=== PATIENT | male | born 1965 | race Caucasian/White ===

== ENCOUNTER → 2022-01-21 | Outpatient (CLI) | payer OTHER ==
--- NOTE | 2022-01-21 15:39 | CT ---
EXAMINATION TYPE: CT heart w calcium score DATE OF EXAM: 01/21/2022 COMPARISON: None. HISTORY: Screening for cardiovascular disorder. 213.9 CT DLP: 497.6 mGycm Automated exposure control for dose reduction was used. CT CALCIUM SCORING Coronary calcium is a marker for plaque (fatty deposits) in a blood vessel or atherosclerosis (harden ing of the arteries). The presence and amount of calcium detected in a coronary artery by the CT sca n, indicates the presence and amount of atherosclerotic plaque. These calcium deposits appear years before the development of heart disease symptoms such as chest pain and shortness of breath. A calcium score is computed for each of the coronary arteries based upon the volume and density of th e calcium deposits. This can be referred to as your calcified plaque burden. It does not correspond directly to the percentage of narrowing in the artery but does correlate with the severity of the un derlying coronary atherosclerosis. PROCEDURE TECHNIQUE - Prospective Gating was used. Slice thickness: 3mm. Density threshold (HU): 130, Pixel threshold: 3, Algorithm: discrete. RESULTS Region: LM Calcium Score ([place]): 0 Volume (mm3): 0 Mass (g): 0 Region: RCA Calcium Score ([place]): 0 Volume (mm3): 0 Mass (g): 0 Region: LAD Calcium Score ([place]): 3.28 Volume (mm3): 4.92 Mass (g): 1.64 Region: CX Calcium Score ([place]): 3.61 Volume (mm3): 5.41 Mass (g): 1.8 Region: PDA Calcium Score ([place]): 0 Volume (mm3): 0 Mass (g): 0 Total: Calcium Score ([place]): 6.89 Volume (mm3): 10.33 Mass (g): 3.44 Incidental findings: Mild left basilar linear scarring IMPRESSION: Calcium Score: 1-10 Implication: Minimal identifiable plaque. Risk of Coronary Artery Disease: Very unlikely, less than 10%.
== END | disposition home or self-care (01) ==
LOC: RADCTMAIN 13:11
DX: Z13.6 Encounter for screening for cardiovascular disorders (principal); I25.10 Atherosclerotic heart disease of native coronary artery without angina pectoris
CPT/HCPCS: 75571

== ENCOUNTER 2023-03-24 09:05 | Emergency (ER) | payer OTHER ==
[2023-03-24] MEDS ORDERED: ONDANSETRON 4 MG/2 ML VIAL IVP STA ×2 (09:27→12:01)
[2023-03-24] MEDS ORDERED: KETOROLAC 15 MG/ML 1 ML VIAL IVP STA (09:27)
[2023-03-24] MEDS ORDERED: SODIUM CHLORIDE 0.9% 1,000 ML IV STA (09:27)
[2023-03-24] MEDS ORDERED: MORPHINE SULFATE 2 MG/ML SYRINGE IVP STA (09:28)
--- NOTE | 2023-03-24 09:33 | ED ---
Abdominal Pain HPI - General Chief Complaint: Nausea/Vomiting/Diarrhea Stated Complaint: NVD-abd pain Time Seen by Provider: 03/24/23 09:23 Source: patient, RN notes reviewed Mode of arrival: ambulatory Limitations: no limitations - History of Present Illness Initial Comments: This is a 57 year old male who presents to the emergency department for abdomi nal pain, nausea, vomiting, and diarrhea. States that 2 days ago he started to develop nausea and vomiting and has since been unable to keep anything down. Yesterday he then developed diarrhea. He has continued to have the pain in the left side and left lower quadrant. He does have some pain going into the back as well. Denies any fevers. Reports a history of kidney stones but states that this feels different. Denies any history of diverticulitis. Unsure if he has ever been told that he has diverticulosis. He did go to urgent care earlier today and was instructed to come here for further evaluation. After being in the emergency department for a couple of hours, states that he received a phone call from his saying that 2 other people from a friend's thanksgiving dinner 3 days ago have also now started vomiting, and he wonders if he may have gotten sick from this. MD Complaint: abdominal pain - Related Data Previous Rx's Medication Instructions Recorded Ondansetron Odt [Zofran Odt] 4 mg PO Q8HR PRN #20 tab 03/24/23 Allergies Allergy/AdvReac Type Severity Reaction Status Date / Time Penicillins Allergy Rash/Hives Verified 03/24/23 09:16 Review of Systems ROS Statement: Those systems with pertinent positive or pertinent negative responses have been documented in the HPI. ROS Other: All systems not noted in ROS Statement are negative. Past Medical History Past Medical History: No Reported History History of Any Multi-Drug Resistant Organisms: None Reported Past Surgical History: Back Surgery, Orthopedic Surgery Past Psychological History: No Psychological Hx Reported Smoking Status: Vaper Past Alcohol Use History: Daily Past Drug Use History: Marijuana General Exam Limitations: no limitations General appearance: alert, in no apparent distress Head exam: Present: atraumatic, normocephalic, normal inspection Respiratory exam: Present: normal lung sounds bilaterally. Absent: respiratory distress, wheezes, rales, rhonchi, stridor Cardiovascular Exam: Present: regular rate, normal rhythm, normal heart sounds. Absent: systolic murmur, diastolic murmur, rubs, gallop, clicks GI/Abdominal exam: Present: soft, tenderness (LLQ), normal bowel sounds. Absent: distended Neurological exam: Present: alert, oriented X3, CN II-XII intact Psychiatric exam: Present: normal affect, normal mood Skin exam: Present: warm, dry, intact, normal color. Absent: rash Course Vital Signs 03/24/23 03/24/23 03/24/23 09:17 10:52 11:00 Temperature 99 F 98.1 F 98.4 F Pulse Rate 87 85 83 Respiratory 18 18 18 Rate Blood Pressure 147/88 161/99 161/98 O2 Sat by Pulse 97 98 95 Oximetry 03/24/23 13:22 Temperature 98.3 F Pulse Rate 80 Respiratory 18 Rate Blood Pressure 152/73 O2 Sat by Pulse 97 Oximetry Medical Decision Making - Medical Decision Making this is a 57-year-old male who presents to the emergency department for abdominal pain, nausea, and vomiting. Was pt. sent in by a medical professional or institution? @ -Urgent care Did you speak to anyone other than the patient for history? @ -No Did you review nursing and triage notes? @ -Yes, and I agree, it is accurate with regards to the patient's symptoms. Were old charts reviewed? @ -No Differential Diagnosis? @ -Differential Abdominal Pain Men: Appendicitis, cholecystitis, diverticulosis, ischemic bowel, pancreatitis, hepatitis, UTI, gastroenteritis, AAA, incarcerated hernia, bowel obstruction, constipation, inflammatory bowel, hepatitis, peptic ulcer disease, splenic infarction, perforated viscus, testicular torsion, this is not meant to be an all-inclusive list EKG interpreted by me (3pts min.)? @ -Not obtained X-rays interpreted by me (1pt min.)? @ -Not obtained CT interpreted by me (1pt min.)? @ -Computed tomography scan of the abdomen and pelvis obtained. My interpretation identifies no evidence of bowel wall thickening or free air. U/S interpreted by me (1pt. min.)? @ -Not obtained What testing was considered but not performed? (CT, X-rays, U/S, labs)? Why? @ -None What meds were considered but not given? Why? @ -None Did you discuss the management of the patient with other professionals? @ -No Did you reconcile home meds? @ -No Was smoking cessation discussed for >3mins.? @ -No Was critical care preformed (if so, how long)? @ -No Were there social determinants of health that impacted care today? How? (Homelessness, low income, unemployed, alcoholism, drug addiction, transportation, low edu. Level, literacy, decrease access to med. care, assisted, rehab)? @ -No Was there de-escalation of care discussed even if they declined? (Discuss DNR or withdrawal of care, Hospice)? @ -No What co-morbidities impacted this encounter? (DM, HTN, Smoking, COPD, CAD, Cancer, CVA, Hep., AIDS, mental health diagnosis, sleep apnea, morbid obesity)? @ -None Was patient admitted / discharged? @ -Discharged. Lab work obtained and found to be nonactionable. Urinalysis negative for signs of infection. Computed tomography scan of the abdomen and pelvis obtained revealing no acute process. Pain may be related to a muscle strain from repeated nausea and vomiting. Patient's symptoms were well controlled in the emergency department and he was tolerating oral intake afterwards. Given that he was at a friend's Thanksgiving dinner and 2 other people have also started to get sick, it is very possible that he contracted something there whether it be a virus or related to food poisoning. Following medication administration, he did feel significantly improved and stable for discharge home. Prescription for Zofran provided with dosing instructions reviewed. He is advised to slowly advance his diet as tolerated and remain well-hydrated. Also advised close follow-up with his primary care provider. Undiagnosed new problem with uncertain prognosis? @ -None Drug Therapy requiring intensive monitoring for toxicity (Heparin, Nitro, Insulin, Cardizem)? @ -None Were any procedures done? @ -None Diagnosis/symptom? @ -Nausea and vomiting, abdominal pain Acute, or Chronic, or Acute on Chronic? @ -Acute Uncomplicated (without systemic symptoms) or Complicated (systemic symptoms)? @ -Uncomplicated Side effects of treatment? @ -None Exacerbation, Progression, or Severe Exacerbation] @ -Not applicable Poses a threat to life or bodily function? @ -No Return precautions reviewed in depth, the patient is instructed to return to the emergency department with any new, worsening, or concerning symptoms. Patient verbalized understanding. This case was discussed in detail with the attending ED physician, Dr. Smith. Presentation, findings, and treatment plan discussed in detail as well. - Lab Data Result diagrams: 03/24/23 09:31 03/24/23 09:31 Lab Results 03/24/23 03/24/23 03/24/23 Range/Units 09:31 09:31 09:31 WBC 9.0 (3.8-10.6) k/uL RBC 5.21 (4.30-5.90) m/uL Hgb 15.9 (13.0-17.5) gm/dL Hct 45.1 (39.0-53.0) % MCV 86.6 (80.0-100.0) fL MCH 30.5 (25.0-35.0) pg MCHC 35.2 (31.0-37.0) g/dL RDW 13.2 (11.5-15.5) % Plt Count 274 (150-450) k/uL MPV 8.3 Neutrophils % 83 % Lymphocytes % 10 % Monocytes % 4 % Eosinophils % 0 % Basophils % 0 % Neutrophils # 7.5 (1.3-7.7) k/uL Lymphocytes # 0.9 L (1.0-4.8) k/uL Monocytes # 0.4 (0-1.0) k/uL Eosinophils # 0.0 (0-0.7) k/uL Basophils # 0.0 (0-0.2) k/uL Sodium 136 L (137-145) mmol/L Potassium 3.8 (3.5-5.1) mmol/L Chloride 102 (98-107) mmol/L Carbon Dioxide 21 L (22-30) mmol/L Anion Gap 13 mmol/L BUN 10 (9-20) mg/dL Creatinine 0.63 L (0.66-1.25) mg/dL Est GFR (CKD-EPI)AfAm >90 (>60 ml/min/1.73 sqM) Est GFR (CKD-EPI)NonAf >90 (>60 ml/min/1.73 sqM) Glucose 151 H (74-99) mg/dL Plasma Lactic Acid Kirill (0.7-2.0) mmol/L Calcium 10.2 (8.4-10.2) mg/dL Total Bilirubin 1.0 (0.2-1.3) mg/dL AST 81 H (17-59) U/L ALT 117 H (4-49) U/L Alkaline Phosphatase 75 (38-126) U/L Total Protein 7.7 (6.3-8.2) g/dL Albumin 4.4 (3.5-5.0) g/dL Urine Color Yellow Urine Appearance Clear (Clear) Urine pH 6.5 (5.0-8.0) Ur Specific [place] >1.050 H (1.001-1.035) Urine Protein Trace H (Negative) Urine Glucose (UA) Negative (Negative) Urine Ketones Trace H (Negative) Urine Blood Negative (Negative) Urine Nitrite Negative (Negative) Urine Bilirubin Negative (Negative) Urine Urobilinogen <2.0 (<2.0) mg/dL Ur Leukocyte Esterase Negative (Negative) 03/24/23 Range/Units 09:31 WBC (3.8-10.6) k/uL RBC (4.30-5.90) m/uL Hgb (13.0-17.5) gm/dL Hct (39.0-53.0) % MCV (80.0-100.0) fL MCH (25.0-35.0) pg MCHC (31.0-37.0) g/dL RDW (11.5-15.5) % Plt Count (150-450) k/uL MPV Neutrophils % % Lymphocytes % % Monocytes % % Eosinophils % % Basophils % % Neutrophils # (1.3-7.7) k/uL Lymphocytes # (1.0-4.8) k/uL Monocytes # (0-1.0) k/uL Eosinophils # (0-0.7) k/uL Basophils # (0-0.2) k/uL Sodium (137-145) mmol/L Potassium (3.5-5.1) mmol/L Chloride (98-107) mmol/L Carbon Dioxide (22-30) mmol/L Anion Gap mmol/L BUN (9-20) mg/dL Creatinine (0.66-1.25) mg/dL Est GFR (CKD-EPI)AfAm (>60 ml/min/1.73 sqM) Est GFR (CKD-EPI)NonAf (>60 ml/min/1.73 sqM) Glucose (74-99) mg/dL Plasma Lactic Acid Kirill 1.1 (0.7-2.0) mmol/L Calcium (8.4-10.2) mg/dL Total Bilirubin (0.2-1.3) mg/dL AST (17-59) U/L ALT (4-49) U/L Alkaline Phosphatase (38-126) U/L Total Protein (6.3-8.2) g/dL Albumin (3.5-5.0) g/dL Urine Color Urine Appearance (Clear) Urine pH (5.0-8.0) Ur Specific [place] (1.001-1.035) Urine Protein (Negative) Urine Glucose (UA) (Negative) Urine Ketones (Negative) Urine Blood (Negative) Urine Nitrite (Negative) Urine Bilirubin (Negative) Urine Urobilinogen (<2.0) mg/dL Ur Leukocyte Esterase (Negative) - Radiology Data Radiology results: report reviewed, image reviewed Disposition Clinical Impression: Gastroenteritis, Abdominal pain Disposition: HOME SELF-CARE Instructions (If sedation given, give patient instructions): Gastroenteritis (ED), Acute Nausea and Vomiting (ED), Acute Diarrhea (ED) Additional Instructions: Return to the emergency department with any new, worsening, or concerning symptoms. You can take the Zofran up to every 8 hours as needed for nausea and vomiting. Slowly advance your diet as tolerated and remain well-hydrated. Follow up with your primary care provider in 1-2 days. Prescriptions: Ondansetron Odt [Zofran Odt] 4 mg PO Q8HR PRN #20 tab PRN Reason: Nausea And Vomiting Is patient prescribed a controlled substance at d/c from ED?: No Referrals: None,Stated [REFERRING] - 1-2 days
[2023-03-24 09:39] LABS: Basophils % (A) 0 %; Eosinophils % (A) 0 %; HCT 45.1 % (39.0-53.0); HGB 15.9 gm/dL (13.0-17.5); Lymphocytes # (A) 0.9 k/uL (1.0-4.8); Lymphocytes % (A) 10 %; MCH 30.5 pg (25.0-35.0); MCHC 35.2 g/dL (31.0-37.0); MCV 86.6 fL (80.0-100.0); Mean Platelet Volume 8.3; Monocytes # (A) 0.4 k/uL (0-1.0); Monocytes % (A) 4 %; Neutrophils # (A) 7.5 k/uL (1.3-7.7); Neutrophils % (A) 83 %; Platelet Count 274 k/uL (150-450); RBC 5.21 m/uL (4.30-5.90); RDW 13.2 % (11.5-15.5)
[2023-03-24 09:43] VITALS: RESP 18
[2023-03-24 09:51] LABS: ALT 117 U/L (4-49); AST 81 U/L (17-59); African American GFR (CKD) >90 (>60 ml/min/1.73 sqM); Albumin 4.4 g/dL (3.5-5.0); Alkaline Phosphatase 75 U/L (38-126); Anion Gap 13 mmol/L; Blood Urea Nitrogen 10 mg/dL (9-20); Calcium 10.2 mg/dL (8.4-10.2); Carbon Dioxide 21 mmol/L (22-30); Chloride 102 mmol/L (98-107); Glucose 151 mg/dL (74-99); Non-African American GFR(CKD) >90 (>60 ml/min/1.73 sqM); Potassium 3.8 mmol/L (3.5-5.1); Sodium 136 mmol/L (137-145); Total Protein 7.7 g/dL (6.3-8.2)
--- NOTE | 2023-03-24 10:22 | CT ---
EXAMINATION TYPE: CT abdomen pelvis w con DATE OF EXAM: 03/24/2023 COMPARISON: None HISTORY: LLQ pain, nausea CT DLP: 2886.4 mGycm CONTRAST: CT scan of the abdomen and pelvis is performed without Oral Contrast and with IV Contrast, patient in jected with 100 mL of Isovue 300. FINDINGS: LUNG BASES-: No visible nodule. No infiltrate. LIVER/GB: No calcified gallstones. There is evidence of hepatic steatosis. No space occupying hepa tic lesion. Biliary tree is of normal caliber. PANCREAS: No inflammation. No distinct mass. SPLEEN: No splenic enlargement. No lesion seen. ADRENALS: No nodule. No thickening. KIDNEYS/BLADDER: No hydronephrosis. No nephrolithiasis. No distinct renal mass. Urinary bladder g rossly unremarkable. BOWEL: Normal appendix. Normal bowel caliber. No inflammation. GENITAL ORGANS: No gross abnormality. LYMPH NODES: No greater than 1cm abdominal or pelvic lymph nodes are appreciated. AORTA: No significant abnormality. OSSEOUS STRUCTURES: No significant abnormality is seen. OTHER: No significant additional abnormality is seen. IMPRESSION: 1. No acute process identified.
[2023-03-24 10:52] LABS: Appearance,Urine Clear (Clear); Bilirubin,Urine Negative (Negative); Blood,Urine Negative (Negative); Color,Urine Yellow; Glucose,Urine (UA) Negative (Negative); Ketones,Urine Trace (Negative); Leukocyte Esterase,Urine Negative (Negative); Nitrite,Urine Negative (Negative); PH, Urine 6.5 (5.0-8.0); Protein,Urine Trace (Negative); Urobilinogen,Urine <2.0 mg/dL (<2.0)
[2023-03-24 10:57] LABS: Specific Gravity,Urine >1.050 (1.001-1.035)
[2023-03-24] MEDS ORDERED: PROCHLORPERAZINE INJ 10 MG/2 ML VIAL IVP STA (11:11)
[2023-03-24] MEDS ORDERED: ONDANSETRON 4 MG ODT STARTER PACK 2 TAB BTL PO STA (13:13)
[2023-03-24 13:37] VITALS: BP 152/73; PULSE 80; TEMP 98.3
== END 2023-03-24 13:22 | disposition home or self-care (01) ==
LOC: EC 09:05
DX: K52.9 Noninfective gastroenteritis and colitis, unspecified (principal); F17.290 Nicotine dependence, other tobacco product, uncomplicated; F12.90 Cannabis use, unspecified, uncomplicated; Z88.0 Allergy status to penicillin
CPT/HCPCS: 96374; 96375 ×3; 96376; 96361 ×2; 99284; 36415; 80053; 83605; 85025; 81003; 74177; J0780; J2405; J2270; J1885; Q9967

== ENCOUNTER → 2023-09-28 | Outpatient (CLI) | payer OTHER ==
--- NOTE | 2023-09-29 07:34 | US ---
EXAMINATION TYPE: US abdomen complete DATE OF EXAM: 09/28/2023 COMPARISON: NONE CLINICAL INDICATION: Male, 58 years old with history of R74.8 ABN LEVELS; Abdominal discomfort, nause a and vomiting, elevated liver enzymes TECHNIQUE: Multiple sonographic images of the abdomen are obtained. FINDINGS: EXAM MEASUREMENTS: Liver Length: 19.3 cm Gallbladder Wall: 0.2 cm CBD: 0.4 cm Spleen: 14.1 cm Right Kidney: 15.2 x 5.3 x 5.0 cm Left Kidney: 13.4 x 5.6 x 4.2 cm CERTIFIED NEURODIAGNOSTIC TECHNOLOGIST NOTES: *Technical limitations due to patient's body habitus and large amount of overlying bowel gas Pancreas: Obscured by bowel gas Liver: enlarged, attenuating, unable to penetrate Gallbladder: no evidence of stones Evidence for sonographic Landers's sign: no CBD: limited evaluation Spleen: slightly enlarged Right Kidney: enlarged, no evidence of hydronephrosis Left Kidney: no evidence of hydronephrosis Upper IVC: Obscured by overlying bowel gas Abd Aorta: visualized portions appear wnl IMPRESSION: 1. Hepatomegaly and moderate fatty infiltration of liver. 2. Splenomegaly.
== END | disposition home or self-care (01) ==
LOC: RADUSWWP 08:31
PROVIDERS: ATTEND Internal Medicine
DX: K76.0 Fatty (change of) liver, not elsewhere classified (principal); R16.2 Hepatomegaly with splenomegaly, not elsewhere classified; R74.8 Abnormal levels of other serum enzymes
CPT/HCPCS: 76700

== ENCOUNTER → 2023-10-22 | Outpatient (CLI) | payer OTHER ==
--- NOTE | 2023-10-22 16:51 | CT ---
EXAMINATION TYPE: CT abdomen w con CT DLP: 2059.0 mGycm, Automated exposure control for dose reduction was used. DATE OF EXAM: 10/22/2023 2:54 PM COMPARISON: CT 03/24/2023 CLINICAL INDICATION:Male, 58 years old with history of R16.0 HEPATOMEGALY R16.1 SPLENOMEGALY; HEPATOM EGALY AND SPLENOMEGALY. MID TO UPPER ABDOMINAL PAIN X3 MONTHS. TECHNIQUE: Axial CT of the abdomen . Sagittal and coronal reformats were created on a separate works tation. Contrast used:100ml mL of Isovue 300 with IV Contrast, (none if empty) Oral contrast used: with Oral Contrast (none if empty) FINDINGS: LOWER CHEST: Unremarkable ABDOMEN LIVER: Mildly enlarged to 17.4 cm. Otherwise unremarkable. GALLBLADDER AND BILE DUCTS: Unremarkable gallbladder. No biliary ductal dilatation. PANCREAS: Fatty infiltrated without acute finding. SPLEEN: Enlarged at 15.1 cm. Otherwise remarkable. ADRENAL GLANDS: Mildly thickened, may be seen with hyperplasia.. KIDNEYS AND URETERS: Kidneys enhance symmetrically. No evidence of hydronephrosis or visible renal ca lculus. The ureters are unremarkable. STOMACH AND BOWEL: Stomach and small bowel are nondistended, no evidence of obstruction. No sign of appendicitis. Mild to moderate stool in the visualized colon without acute abnormality demonstrated . PERITONEUM/RETROPERITONEUM: No evidence of pneumoperitoneum or free fluid. VASCULATURE: Mild atherosclerotic calcifications are present throughout the abdominal aorta and its b ranches. No evidence of aortic aneurysm. LYMPH NODES: No enlarged nodes by CT size criteria. SOFT TISSUE/ABDOMINAL WALL: Small fat-containing umbilical hernia. MUSCULOSKELETAL: No acute osseous abnormalities. Mild degenerative disc disease changes. IMPRESSION: * Hepatosplenomegaly. * No acute CT abnormality.
== END | disposition home or self-care (01) ==
LOC: RADCTMAIN 13:40
PROVIDERS: ATTEND Internal Medicine
DX: R16.2 Hepatomegaly with splenomegaly, not elsewhere classified (principal); R16.0 Hepatomegaly, not elsewhere classified; R16.1 Splenomegaly, not elsewhere classified
CPT/HCPCS: 74160; Q9967

== ENCOUNTER → 2023-10-29 | Outpatient (CLI) | payer OTHER ==
--- NOTE | 2023-10-29 11:00 | NM ---
EXAMINATION TYPE: NM hepatobiliary w EF DATE OF EXAM: 10/29/2023 COMPARISON: NONE CLINICAL INDICATION: Male, 58 years old with history of R16.0 HEPATOMEGALY R16.1 SPLENOMEGALY; TECHNIQUE: After the intravenous administration of 5.5 mCi Tc 99m Mebrofenin hepatobiliary scintigrap hy is performed. Immediate images post injection. FINDINGS: There is satisfactory initial accumulation of tracer by the liver. The gallbladder is visualized wit hin 10 minutes. The small bowel activity is noted within 42 minutes. At one hour 8 ounces of oral e nsure plus is given to mimic CCK and gallbladder ejection fraction is calculated at 75 %, in the norm al range. Therefore there is no scintigraphic evidence of cystic or common bile duct obstruction to suggest acute cholecystitis or gallbladder dyskinesia. IMPRESSION: Exam is within normal limits.
== END | disposition home or self-care (01) ==
LOC: RADNMMAIN 06:37
PROVIDERS: ATTEND Internal Medicine
DX: R16.0 Hepatomegaly, not elsewhere classified (principal); R16.1 Splenomegaly, not elsewhere classified
CPT/HCPCS: 78226; A9537

== ENCOUNTER 2023-11-17 14:56 | Emergency (ER) | payer OTHER ==
--- NOTE | 2023-11-17 15:08 | ED ---
Abdominal Pain HPI - General Source: patient, RN notes reviewed Mode of arrival: ambulatory Limitations: no limitations <Kathy Drummond - Last Filed: 11/17/23 15:07> <Griffin Mijares - Last Filed: 11/17/23 22:08> - General Chief Complaint: Abdominal Pain Stated Complaint: right side abd pain Time Seen by Provider: 11/17/23 15:07 - History of Present Illness Initial Comments: Quick Note: This is a 58-year-old male who presents to the emergency department for abdominal pain. Reports problems with upper abdominal pain that has been ongoing since June. He has had multiple scans that have been unable to determine an exact cause. States that the pain is getting worse and he is nauseous and unable to eat. (Kathy Drummond) 58-year-old male with a past medical history significant for prior alcoholism reports he quit drinking heavily approximately 15 years ago however has recently started to have small drinks on occasions presenting to the ED with complaints of abdominal pain. Patient reports since late June/early July has had epigastric/right upper quadrant pain. Reports pain is constant in nature and since onset pain has becoming worse. Also notes some associated nausea with this as well. Reports secondary to his symptoms has been unable to eat for the last 3 days. Patient had a CT abdomen pelvis on 10/22/2023 that showed hepatosplenomegaly and a HIDA scan on 10/29/2023 which was within normal limits. Reports that he is due to follow-up with a "liver specialist" on December 03 however due to to symptoms seem to worsen and being unable to eat presenting to the ED for further evaluation. Reports no new symptoms onset. Denies changes in bowel or bladder habits. No chest pain or shortness of breath. No other complaints at this time. (Griffin Mijares) - Related Data Previous Rx's Medication Instructions Recorded Ondansetron Odt [Zofran Odt] 4 mg PO Q8HR PRN #20 tab 03/24/23 Ibuprofen [Motrin] 600 mg PO Q8HR PRN #30 tab 11/17/23 Ondansetron Odt [Zofran Odt] 4 mg PO Q8HR PRN #10 tab 11/17/23 Allergies Allergy/AdvReac Type Severity Reaction Status Date / Time Penicillins Allergy Rash/Hives Verified 11/17/23 15:47 Review of Systems ROS Other: All systems not noted in ROS Statement are negative. <Kathy Drummond - Last Filed: 11/17/23 15:07> ROS Other: All systems not noted in ROS Statement are negative. <Griffin Mijares - Last Filed: 11/17/23 22:08> ROS Statement: Those systems with pertinent positive or pertinent negative responses have been documented in the HPI. Past Medical History Past Medical History: No Reported History History of Any Multi-Drug Resistant Organisms: None Reported Past Surgical History: Back Surgery, Orthopedic Surgery Past Psychological History: No Psychological Hx Reported Smoking Status: Vaper Past Alcohol Use History: Daily Past Drug Use History: Marijuana <Kathy Drummond - Last Filed: 11/17/23 15:07> General Exam <Kathy Drummond - Last Filed: 11/17/23 15:07> General appearance: alert, in no apparent distress Eye exam: Present: normal appearance Neck exam: Present: normal inspection Respiratory exam: Present: normal lung sounds bilaterally Cardiovascular Exam: Present: regular rate GI/Abdominal exam: Present: soft (Epigastric and right upper quadrant tenderness to palpation. No rebound guarding or rigidity.) Neurological exam: Present: alert, oriented X3 Skin exam: Present: warm, dry <Griffin Mijares - Last Filed: 11/17/23 22:08> - General Exam Comments Initial Comments: Visual Physical Exam Vital signs reviewed General: Well-appearing, nontoxic, no acute distress. Head: Normocephalic, atraumatic Eyes: PERRLA, EOMI ENT: Airway patent Chest: Nonlabored breathing Skin: No visual rash, normal skin tone Neuro: Alert and oriented 3 Musculoskeletal: No gross abnormalities (Kathy Drummond) Course Vital Signs 11/17/23 11/17/23 11/17/23 15:44 19:53 21:20 Temperature 97.8 F Pulse Rate 81 80 71 Respiratory 18 18 18 Rate Blood Pressure 171/92 155/87 155/89 O2 Sat by Pulse 98 98 97 Oximetry Medical Decision Making <Kathy Drummond - Last Filed: 11/17/23 15:07> - Lab Data Result diagrams: 11/17/23 15:43 07/09/24 15:43 <Griffin Mijares - Last Filed: 11/17/23 22:08> - Medical Decision Making I performed the QuickNote portion of this chart. Signed Kathy Drummond PA-C. (Kathy Drummond) Was pt. sent in by a medical professional or institution (LOIDA Clarke, RIDDLER OPERATOR, urgent care, hospital, or half-way...) When possible be specific @ -No Did you speak to anyone other than the patient for history (EMS, parent, family, police, friend...)? What history was obtained from this source @ -No Did you review nursing and triage notes (agree or disagree)? Why? @ -I reviewed and agree with nursing and triage notes Were old charts reviewed (outside hosp., previous admission, EMS record, old EKG, old radiological studies, urgent care reports/EKG's, half-way records)? Report findings @ -Prior imaging studies reviewed. For further details please see HPI. Differential Diagnosis (chest pain, altered mental status, abdominal pain women, abdominal pain men, vaginal bleeding, weakness, fever, dyspnea, syncope, headache, dizziness, GI bleed, back pain, seizure, CVA, palpatations, mental health, musculoskeletal)? @ -Differential Abdominal Pain Men: Appendicitis, cholecystitis, diverticulosis, ischemic bowel, pancreatitis, hepatitis, UTI, gastroenteritis, AAA, incarcerated hernia, bowel obstruction, constipation, inflammatory bowel, hepatitis, peptic ulcer disease, splenic infarction, perforated viscus, testicular torsion, this is not meant to be an all-inclusive list EKG interpreted by me (3pts min.). @ -EKG interpreted me showing a sinus rhythm with occasional premature beats at a rate of 87 bpm. SD 183, QRS 92, QT/QTc 375/420. X-rays interpreted by me (1pt min.). @ -None done CT interpreted by me (1pt min.). @ -CT abdomen pelvis interpreted me which shows some mild fatty alteration of the liver and mild diverticulosis without acute diverticulitis. No other significant findings. U/S interpreted by me (1pt. min.). @ -Ultrasound interpreted me showing hepatomegaly with mild fatty infiltration of liver. What testing was considered but not performed or refused? (CT, X-rays, U/S, labs)? Why? @ -None What meds were considered but not given or refused? Why? @ -None Did you discuss the management of the patient with other professionals (professionals i.e. , PA, RIDDLER OPERATOR, lab, RT, psych nurse, social welfare clerk, senior payroll manager, teacher, chief green officer, sample case porter)? Give summary @ -No Was smoking cessation discussed for >3mins.? @ -No Was critical care preformed (if so, how long)? @ -No Were there social determinants of health that impacted care today? How? (Ho melessness, low income, unemployed, alcoholism, drug addiction, transportation, low edu. Level, literacy, decrease access to med. care, retirement, rehab)? @ -No Was there de-escalation of care discussed even if they declined (Discuss DNR or withdrawal of care, Hospice)? DNR status @ -No What co-morbidities impacted this encounter? (DM, HTN, Smoking, COPD, CAD, Cancer, CVA, ARF, Chemo, Hep., AIDS, mental health diagnosis, sleep apnea, morbid obesity)? @ -None Was patient admitted / discharged? Hospital course, mention meds given and route, prescriptions, significant lab abnormalities, going to OR and other pertinent info. @ -Discharge 58-year-old male presented to the ED with complaints of epigastric/right upper quadrant pain with associated nausea ongoing since late June/early July. Notes he has follow-up with a liver specialist on the of this month however wanted to come to the emergency room to make sure nothing else was going on. Laboratory studies reviewed. CBC unremarkable. Chemistry panel does show mild transaminitis with AST of 80, ALT 102, no elevation in bilirubin. UA shows no evidence of infection however does show 3+ ketones consistent with history of nausea and vomiting with decreased oral intake. Patient provided analgesia and antiemetics with significant improvement symptoms. Discharged home in stable condition advised close follow-up with specialist as scheduled and also provided referral to see GI. Provided prescriptions for ibuprofen and Zofran. Discussed return precautions with patient who verbalized agreement. Undiagnosed new problem with uncertain prognosis? @ -No Drug Therapy requiring intensive monitoring for toxicity (Heparin, Nitro, Insulin, Cardizem)? @ -No Were any procedures done? @ -No Diagnosis/symptom? @ -Abdominal pain Acute, or Chronic, or Acute on Chronic? @ -Acute on chronic Uncomplicated (without systemic symptoms) or Complicated (systemic symptoms)? @ -Uncomplicated Side effects of treatment? @ -No Exacerbation, Progression, or Severe Exacerbation? @ -No Poses a threat to life or bodily function? How? (Chest pain, [place], [place], pneumonia, PE, COPD, DKA, ARF, appy, cholecystitis, CVA, Diverticulitis, Homicidal, Suicidal, threat to staff... and all critical care pts) @ -No (Griffin Mijares) - Lab Data Lab Results 11/17/23 11/17/23 11/17/23 Range/Units 15:43 15:43 15:43 WBC 9.4 (3.8-10.6) k/uL RBC 5.41 (4.30-5.90) m/uL Hgb 16.7 (13.0-17.5) gm/dL Hct 47.8 (39.0-53.0) % MCV 88.4 (80.0-100.0) fL MCH 30.9 (25.0-35.0) pg MCHC 35.0 (31.0-37.0) g/dL RDW 12.8 (11.5-15.5) % Plt Count 270 (150-450) k/uL MPV 9.4 Neutrophils % 69 % Lymphocytes % 22 % Monocytes % 6 % Eosinophils % 2 % Basophils % 1 % Neutrophils # 6.5 (1.3-7.7) k/uL Lymphocytes # 2.0 (1.0-4.8) k/uL Monocytes # 0.5 (0-1.0) k/uL Eosinophils # 0.2 (0-0.7) k/uL Basophils # 0.1 (0-0.2) k/uL Sodium 136 L (137-145) mmol/L Potassium 3.9 (3.5-5.1) mmol/L Chloride 107 (98-107) mmol/L Carbon Dioxide 18 L (22-30) mmol/L Anion Gap 11 mmol/L BUN 8 L (9-20) mg/dL Creatinine 0.66 (0.66-1.25) mg/dL Est GFR (CKD-EPI)AfAm >90 (>60 ml/min/1.73 sqM) Est GFR (CKD-EPI)NonAf >90 (>60 ml/min/1.73 sqM) Glucose 107 H (74-99) mg/dL Plasma Lactic Acid Kirill 1.1 (0.7-2.0) mmol/L Calcium 10.6 H (8.4-10.2) mg/dL Total Bilirubin 1.0 (0.2-1.3) mg/dL AST 80 H (17-59) U/L ALT 102 H (4-49) U/L Alkaline Phosphatase 72 (38-126) U/L Total Protein 7.6 (6.3-8.2) g/dL Albumin 4.5 (3.5-5.0) g/dL Amylase 49 (30-110) U/L Lipase 87 (23-300) U/L Urine Color Urine Appearance (Clear) Urine pH (5.0-8.0) Ur Specific Piffard (1.001-1.035) Urine Protein (Negative) Urine Glucose (UA) (Negative) Urine Ketones (Negative) Urine Blood (Negative) Urine Nitrite (Negative) Urine Bilirubin (Negative) Urine Urobilinogen (<2.0) mg/dL Ur Leukocyte Esterase (Negative) 11/17/23 Range/Units 15:43 WBC (3.8-10.6) k/uL RBC (4.30-5.90) m/uL Hgb (13.0-17.5) gm/dL Hct (39.0-53.0) % MCV (80.0-100.0) fL MCH (25.0-35.0) pg MCHC (31.0-37.0) g/dL RDW (11.5-15.5) % Plt Count (150-450) k/uL MPV Neutrophils % % Lymphocytes % % Monocytes % % Eosinophils % % Basophils % % Neutrophils # (1.3-7.7) k/uL Lymphocytes # (1.0-4.8) k/uL Monocytes # (0-1.0) k/uL Eosinophils # (0-0.7) k/uL Basophils # (0-0.2) k/uL Sodium (137-145) mmol/L Potassium (3.5-5.1) mmol/L Chloride (98-107) mmol/L Carbon Dioxide (22-30) mmol/L Anion Gap mmol/L BUN (9-20) mg/dL Creatinine (0.66-1.25) mg/dL Est GFR (CKD-EPI)AfAm (>60 ml/min/1.73 sqM) Est GFR (CKD-EPI)NonAf (>60 ml/min/1.73 sqM) Glucose (74-99) mg/dL Plasma Lactic Acid Kirill (0.7-2.0) mmol/L Calcium (8.4-10.2) mg/dL Total Bilirubin (0.2-1.3) mg/dL AST (17-59) U/L ALT (4-49) U/L Alkaline Phosphatase (38-126) U/L Total Protein (6.3-8.2) g/dL Albumin (3.5-5.0) g/dL Amylase (30-110) U/L Lipase (23-300) U/L Urine Color Yellow Urine Appearance Clear (Clear) Urine pH 5.5 (5.0-8.0) Ur Specific Piffard 1.019 (1.001-1.035) Urine Protein Negative (Negative) Urine Glucose (UA) Negative (Negative) Urine Ketones 3+ H (Negative) Urine Blood Negative (Negative) Urine Nitrite Negative (Negative) Urine Bilirubin Negative (Negative) Urine Urobilinogen <2.0 (<2.0) mg/dL Ur Leukocyte Esterase Negative (Negative) Disposition <Kathy Drummond - Last Filed: 11/17/23 15:07> Is patient prescribed a controlled substance at d/c from ED?: No Time of Disposition: 22:08 <Griffin Mijares - Last Filed: 11/17/23 22:08> Clinical Impression: Abdominal pain Disposition: HOME SELF-CARE Condition: Good Additional Instructions: Please return to the Emergency Department if symptoms worsen or any other concerns. Please follow-up with your specialist as scheduled. Also try to follow-up with gastroenterology. Prescriptions: Ibuprofen [Motrin] 600 mg PO Q8HR PRN #30 tab PRN Reason: Pain Ondansetron Odt [Zofran Odt] 4 mg PO Q8HR PRN #10 tab PRN Reason: Nausea Referrals: Armond Blakely MD [Primary Care Provider] - 1-2 days
[2023-11-17 15:47] VITALS: TEMP 97.8
[2023-11-17 16:36] LABS: ALT 102 U/L (4-49); AST 80 U/L (17-59); African American GFR (CKD) >90 (>60 ml/min/1.73 sqM); Albumin 4.5 g/dL (3.5-5.0); Alkaline Phosphatase 72 U/L (38-126); Amylase 49 U/L (30-110); Anion Gap 11 mmol/L; Basophils # (A) 0.1 k/uL (0-0.2); Basophils % (A) 1 %; Blood Urea Nitrogen 8 mg/dL (9-20); Calcium 10.6 mg/dL (8.4-10.2); Carbon Dioxide 18 mmol/L (22-30); Chloride 107 mmol/L (98-107); Eosinophils # (A) 0.2 k/uL (0-0.7); Eosinophils % (A) 2 %; Glucose 107 mg/dL (74-99); HCT 47.8 % (39.0-53.0); HGB 16.7 gm/dL (13.0-17.5); Lipase 87 U/L (23-300); Lymphocytes % (A) 22 %; MCH 30.9 pg (25.0-35.0); MCV 88.4 fL (80.0-100.0); Mean Platelet Volume 9.4; Monocytes # (A) 0.5 k/uL (0-1.0); Monocytes % (A) 6 %; Neutrophils # (A) 6.5 k/uL (1.3-7.7); Neutrophils % (A) 69 %; Non-African American GFR(CKD) >90 (>60 ml/min/1.73 sqM); Platelet Count 270 k/uL (150-450); Potassium 3.9 mmol/L (3.5-5.1); RBC 5.41 m/uL (4.30-5.90); RDW 12.8 % (11.5-15.5); Sodium 136 mmol/L (137-145); Total Protein 7.6 g/dL (6.3-8.2); WBC 9.4 k/uL (3.8-10.6)
[2023-11-17 16:39] LABS: Appearance,Urine Clear (Clear); Bilirubin,Urine Negative (Negative); Blood,Urine Negative (Negative); Color,Urine Yellow; Glucose,Urine (UA) Negative (Negative); Ketones,Urine 3+ (Negative); Leukocyte Esterase,Urine Negative (Negative); Nitrite,Urine Negative (Negative); PH, Urine 5.5 (5.0-8.0); Protein,Urine Negative (Negative); Specific Gravity,Urine 1.019 (1.001-1.035); Urobilinogen,Urine <2.0 mg/dL (<2.0)
[2023-11-17] MEDS: ONDANSETRON 4 MG/2 ML VIAL IVP STA (19:45)
[2023-11-17] MEDS: KETOROLAC 15 MG/ML 1 ML VIAL IVP STA (19:46)
[2023-11-17] MEDS: HYDROmorphone 0.5 MG/0.5 ML SYRINGE IVP STA (19:47)
[2023-11-17 21:22] VITALS: BP 155/89; PULSE 71
--- NOTE | 2023-11-17 21:36 | US ---
EXAMINATION TYPE: US gallbladder DATE OF EXAM: 11/17/2023 COMPARISON: US 09/28/2023 CLINICAL INDICATION: Male, 58 years old with history of epi/RUQ pain; Patient states RUQ pain since m arch. Nausea. Hx of appendectomy TECHNIQUE: Multiple sonographic images of the right upper quadrant are obtained. FINDINGS: EXAM MEASUREMENTS: Liver Length: 17.5 cm Gallbladder Wall: 0.2 cm CBD: 0.3 cm Right Kidney: 14.4 x 5.8 x 5.5 cm [employer]CHITECT NOTES:Limited due to overlying bowel gas Pancreas: Obscured by bowel gas Liver: Upper limits of normal in size. Difficult to penetrate, echogenic. Gallbladder: wnl as best seen Evidence for sonographic Landers's sign: No CBD: wnl as best seen Right Kidney: Enlarged. No hydro or masses seen as best visualized today IMPRESSION: 1. Hepatomegaly with mild fatty infiltration of liver. 2. Prominent right kidney
[2023-11-17 21:38] VITALS: RESP 18
--- NOTE | 2023-11-17 21:38 | CT ---
EXAMINATION TYPE: CT abdomen pelvis w con DATE OF EXAM: 11/17/2023 COMPARISON: 10/22/2023 INDICATION: Right side abd pain DLP: 2201.7 mGycm, Automated exposure control for dose reduction was used. CONTRAST: 100ml mL of Isovue 300. Study performed without Oral Contrast TECHNIQUE: Axial images were obtained from above the diaphragm to the pubic rami in the axial plane a t 5 mm thick sections. Reconstructed images are reviewed on the computer in the coronal plane. FINDINGS: Limited CT sections are obtained the lung bases. The lung bases are clear. CT ABDOMEN: Liver: There is mild fatty infiltration liver. No discrete mass is evident. Spleen: Normal Pancreas: Normal Adrenal glands: The adrenal glands are normal. Gallbladder: Normal Kidneys: No masses are evident. No hydronephrosis is present. No cysts are present. Delayed images were obtained through the kidneys, which remain unremarkable. Aorta: Normal Inferior vena cava: Normal. CT PELVIS: Loops of bowel within the abdomen and pelvis are normal. Scattered diverticuli are present without ad jacent inflammatory changes suggest acute diverticulitis. There are loops of bowel which are incom pletely distended or lack oral contrast limiting their evaluation. Appendix: Not identified. No dilated tubular structure or inflammatory changes evident. Urinary bladder: Normal. Genitourinary structures: Prostate appears unremarkable Osseous structures: No suspicious lytic or sclerotic lesions. IMPRESSION: 1. Mild fatty infiltration liver. 2. Mild diverticulosis without acute diverticulitis.
[2023-11-17] MEDS: IBUPROFEN 600 MG STARTER PACK 4 TAB BTL PO STA (22:23)
[2023-11-17] MEDS: ONDANSETRON 4 MG ODT STARTER PACK 2 TAB BTL PO STA (22:23)
== END 2023-11-17 22:31 | disposition home or self-care (01) ==
LOC: EC 14:56
DX: K76.0 Fatty (change of) liver, not elsewhere classified (principal); K57.90 Diverticulosis of intestine, part unspecified, without perforation or abscess without bleeding; F17.290 Nicotine dependence, other tobacco product, uncomplicated; F12.90 Cannabis use, unspecified, uncomplicated; Z88.0 Allergy status to penicillin
CPT/HCPCS: 36415; 93005; 80053; 82150; 83605; 83690; 85025; 81003; 76705; 74177; 99284; 96374; 96375 ×2; J2405; J1885; S0119; J1170; Q9967; 99285